=== PATIENT | female | born 1995 | race Caucasian/White ===

== ENCOUNTER 2023-06-12 11:41 | Outpatient (CLI) | payer BC, SELFPAY ==
[2023-06-20 08:02] LABS: Progesterone 3.2 ng/mL (***); Prolactin 6.5 ng/mL (***)
== END 2023-06-12 11:42 | disposition home or self-care (01) ==
LOC: ANHLAB 11:43
PROVIDERS: PCP Family Medicine; Visit Provider Obstetrics & Gynecology
DX: N92.6 Irregular menstruation, unspecified (principal)
CPT/HCPCS: 36415; 84144; 84146; 84443

== ENCOUNTER 2025-02-28 10:22 | Emergency (ER) | payer OTHER, BC, SELFPAY ==
[2025-02-28 10:31] VITALS: BP 113/69; PULSE 81; RESP 20; TEMP 36.4; O2SAT 99
--- NOTE | 2025-02-28 10:54 | ED.GIBLEED ---
HPI - GI Bleed General Chief complaint: GI Bleed Stated complaint: Blood in Stool Source: patient Mode of arrival: ambulatory Limitations: no limitations History of Present Illness HPI Narrative: Patient is a 29-year-old female presents to the clinic complaints of blood in her stool and lower abdomen pain since this morning. She states that she is currently undergoing IVF treatment. Patient is not concerned for . She took a test a week ago, and has not ovulated since her last period. She states that she does not have any history of hemorrhoids. Denies any lightheadedness, nausea, vomiting, weakness, sweating or fevers. Related Data Home Medications ?Medication ?Instructions ?Recorded ?Confirmed ?Last Taken ?Type alprazolam 1 mg tablet 1 mg PO DAILY 04/09/22 11/04/24 Unknown History famotidine 10 mg tablet 10 mg PO DAILY 06/12/23 11/04/24 Unknown History omeprazole 40 mg capsule,delayed 40 mg PO DAILY 06/12/23 11/04/24 Unknown History release estradiol 2 mg tablet mg 02/28/25 Unknown History Allergies Allergy/AdvReac Type Severity Reaction Status Date / Time amoxicillin Allergy Intermediate Rash Verified 02/28/25 10:39 clavulanic acid Allergy Mild Nausea and Verified 02/28/25 10:39 Vomiting Penicillins Allergy Mild Nausea and Verified 02/28/25 10:39 Vomiting POTASSIUM CLAVULANATE Allergy Intermediate Rash Uncoded 02/28/25 10:39 Review of Systems Review of Systems: CONSTITUTIONAL: Denies body aches, fever, chills, or sweats. EYES: Denies visual changes, redness, or discharge. ENT: Denies rhinorrhea, congestion, sore throat, or otalgia. CARDIOVASCULAR: Denies chest pain, palpitations, or edema. RESPIRATORY: Denies cough or dyspnea. GASTROINTESTINAL: Reports LLQ and RLQ abdominal pain. Denies nausea, vomiting, or diarrhea, CVA Tenderness. Reports blood in stool. GENITOURINARY: Denies dysuria or hematuria. SKIN: Denies rash, itching, or wounds. MUSCULOSKELETAL: Denies back pain, joint pain, or myalgia. NEUROLOGIC: Denies headache, numbness, tingling, or weakness. PSYCH: Denies depression or anxiety. All systems reviewed & are unremarkable except as noted in HPI and below PMFSH Past Medical History Medical History Heartburn History of endometrial biopsy (03/21/11) postcoital bleeding--benign Bipolar affect, depressed ADHD Migraines Frequent headaches Heart murmur Depression Anxiety Insomnia Surgical History Surgical History History of tonsillectomy [place] teeth extracted (~11/13/12) Family History Family History Grandparent Bipolar disorder maternal grandmother Social History Social History Smoking status: Light tobacco smoker Smoking end date: 05/15/18 Alcohol intake: never Substance use: current Substance use type: marijuana Other substance usage details: daily Lack of Transportation: No Lack of Food: Never True Current Housing: I Have Housing Concerned About Future Housing: No Difficulty Paying Gas/Electric Bills: No Difficulty Paying for Meds: No Currently Unemployed: No Education: High School Diploma/GED Difficulty w/ Childcare or Family Care: No Living arrangements: other Additional living arrangements comments: Occupation/Education: occupation 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 Please see nursing chart for further information. There is no relevant family history pertinent to the presenting complaint. Exam Narrative: GENERAL: Well-appearing, well-nourished, and in no acute distress. HEAD: Normocephalic, atraumatic. EYES: PERRLA, conjunctivae clear, and EOMI. ENT: Mucous membranes moist. NECK: Supple. No lymphadenopathy CHEST: Speaks in full sentences. No respiratory distress. HEART: Regular rate and rhythm. ABDOMEN: Soft, flat, nondistended. No guarding, rebound tenderness, or rigid. No pulsatile masses. Bowel sounds x4. No periumbilical tenderness. No Supra pubic tenderness or distension. Good femoral pulses bilaterally. No hernia noted. No scars or surface trauma. Tenderness with palpation to LLQ abd RLQ. Pt declined JENNY. External exam with no evidence of hemorrhoid. SKIN: Warm, dry, no rash. NEURO: Alert and oriented x3. PSYCH: Normal mood and affect Course Course Level of Care: Express Care Visit Vital Signs Vital signs: Vital Signs Temperature 97.5 F L 02/28/25 10:31 Pulse Rate 81 02/28/25 10:31 Respiratory Rate 20 02/28/25 10:31 Blood Pressure 113/69 02/28/25 10:31 Pulse Oximetry 99 02/28/25 10:31 Oxygen Delivery Room Air 02/28/25 10:31 Temperature 97.5 F L 02/28/25 10:31 Pulse Rate 81 02/28/25 10:31 Respiratory Rate 20 02/28/25 10:31 Blood Pressure 113/69 02/28/25 10:31 Pulse Oximetry 99 02/28/25 10:31 Oxygen Delivery Room Air 02/28/25 10:31 reviewed. MDM - GI Bleed MDM Narrative Medical decision making narrative: Discussed physical exam findings. Discussed in length the importance of patient transferring to the ER for further evaluation. Pt agreeable to plan. Differential Diagnosis Differential diagnosis: Likely hemorrhoids, Upper gastrointestinal hemorrhage and Lower gastrointestinal hemorrhage Critical Care Time Critical Care Time Critical Care Time: No Discharge Plan Discharge Clinical Impression: Blood in stool Patient Disposition: Acute Care Hospital Condition: Stable Patient Language: [place] Prescriptions: No Action estradiol 2 mg tablet alprazolam 1 mg tablet 1 mg PO DAILY omeprazole 40 mg capsule,delayed release(DR/EC) 40 mg PO DAILY famotidine 10 mg tablet 10 mg PO DAILY Follow-up/Referrals: UNKNOWN,DOCTOR [Primary Care Provider] -
--- OUTSIDE RECORDS SUMMARY | 2025-02-28 11:35 | XMS_ITS | Clinical Summary ---
Author Organization [facility] Address [address] [place] [address] Phone Care Team Providers Care Triple Air Valve Tester Name Role Phone Hiro Johnson Primary Care Provider [phone] Angel Foster MD Unavailable [phone] Allergies Active Allergy Reactions Criticality Noted Date Comments Amoxicillin-Pot Clavulanate Vomiting 06/15/20 24 Medications ALPRAZolam (XANAX) 1 MG Tablet TAKE 1 TABLET BY MOUTH TWICE DAILY NEEDED 06/14/2024 Active omeprazole (PriLOSEC) 40 MG CAPSULE DELAYED RELEASE Take 40 mg by mouth daily. 03/19/2024 Active famotidine (PEPCID) 20 MG Tablet Take 20 mg by mouth 2 times daily. Active Family History Medical History Relation Name Comments No Known Problems Father No Known Problems Mother No Known Problems Sister Relation Name Status Comments Father Alive Mother Alive Sister Alive Social History Tobacco Use Types Packs/Day Years Used Date Smoking Tobacco: Former Cigarettes 0.5 5.5 0 09/14/2019 - 09/14/2009 Smokeless Tobacco: Never Tobacco Cessation:Counseling Given: Not Answered Alcohol Use Standard Drinks/Week Comments Yes 0 (1 standard drink = 0.6 oz pur e alcohol) occasional Comments Unknown Sex and Gender Information Value Date Recorded Sex Assigned at Not on file Legal Sex Female 11:32 AM CDT Gender Identity Not on file Sexual Orientation Not on file Last Filed Vital Signs Vital Sign Reading Time Taken Comments Blood Pressure 110/60 11/01/2024 10:06 AM [employer] ON CALL Pulse 92 11/01/2024 10:06 AM [employer] ON CALL Temperature 36.5 C (97.7 F) 11/01/2024 10:06 AM [employer] ON CALL Respiratory Rate 17 11/01/2024 10:06 AM [employer] ON CALL Oxygen Saturation 98% 11/01/2024 10:06 AM [employer] ON CALL Inhaled Oxygen Concentration - - Weight 74.4 kg (164 lb) 11/01/2024 10:06 AM [employer] ON CALL Height 175.3 cm (5' 9) 11/01/2024 10:06 AM [employer] ON CALL Body Mass Index 24.22 11/01/2024 10:06 AM [employer] SERV[employer] ON CALL Plan of Treatment Upcoming Encounters Date Type Department Care Team (Late st Contact Info) Description 05/08/2025 10:00 AM CDT Office Visit [facility] - Neurology - [address] [place] [address] Stella Kinsey APRN, [facility] [address] [place] [address] Health Maintenance Due Date Last Done Comments Hepatitis C Virus (HCV) Screening 1995 TdaP Immunization 1995 Hepatitis B Immunization (1 of 3 - 19+ 3-dose series) 2014 Pap Smear 2016 Influenza Immunization (#1) 2024 SARS-COV-2 Immunization ( - season) 2024 Respiratory Syncytial Virus (RSV) Immunization (Adult) (1 - 1-dose 75+ series) 2070 Meningococcal Immunization (ACWY) Aged Out No longer eligible based on patient's age to complete this topic Pneumococcal Immunization Combined Aged Out No longer eligible based on patient's age to complete this topic Rotavirus Immunization Aged Out No lo nger eligible based on patient's age to complete this topic Insurance [facility] Care Teams Triple Air Valve Tester Relationship Specialty Start Date End Date Hiro Johnson PA [address] [place] [id number] PCP - General Physician Veteran Appeals Reviewer 06/14/24 Angel Foster MD [address] [place] [address] Consulting Physician Neurology 11/01/24
--- OUTSIDE RECORDS SUMMARY | 2025-02-28 11:35 | XMS_ITS | Data Portability ---
Author Organization [facility] [employer], Main Office Address [address] [place] [address] Assessment No assessment recorded. Plan of Treatment Reminders Order Date Submit Date Provider Last Modified By Organization Details Last Modified Time Details Appointments Any 30 2024 01:30P ROSANNE Mae Not available Not available Not available Lab drug screen, urine [address] ([facility]), [address] [place], [address], 11/25/2024 12:56:56 rapid strep group A, throat 2023 024 [email or web address] 00 [facility], [address] [place] [address], [phone], 09/02/2024 12:51:37 Referral None recorded. Procedures None recorded. Surgeries None recorded. Imaging None recorded. Medication Orders azithromy cordelia 250 mg tablet 2023 024 [id number], [address], [place], [place], [phone], 09/02/2024 12:30:08 promethaz ine-DM 6.25 mg-15 mg/5 mL oral syrup 2023 024 [id number], [address], [place], [place], [phone], 09/02/2024 12:30:07 Patient TargetsNo targets recorded. Patient InstructionsNo instructions recorded. Reason for Referral None Reported. Results Created Date Observation Date Name Description Value Unit Range Abnormal Flag Note LastModifiedBy Organization Detail LastModifiedTime 09/02/20 24 09/02/2024 rapid strep group A, throa t STREP A negati ve Not Available [facility]_[address], [address], 09/02/2024 12:35:07 Result Notes None recorded. Problems Name Problem SNOMED Code Status Onset Date Resolution Date Notes Provider Name and Address Organization Details Recorded Time Tobacco user 955289343 Completed Not Available [facility] 3 00:53:13 Panic attack 943328032 Active 2019 Not Available [facility] 3 00:53:13 Vaginal discharge 703425783 Completed Not Available [facility] 3 00:53:14 Menometror rhagia 817425278 Completed Not Available [facility] 3 00:53:14 Depressive disorder 99207492 Active 2019 Not Available [facility] 3 00:53:14 Anxiety 62812102 Active 2019 Not Available [facility] 3 00:53:14 Irregular periods 60897052 Completed Not Available [facility] 3 00:53:14 Seizure 46592342 Active 2019 Not Available [facility] 3 00:53:14 Acid reflux 289896406 Active 2022 Deepika Stuart MD [address], [place], [address] , [employer] [facility] [employer] 3 14:18:25 Skin lesion 19624952 Active 2022 Deepika Stuart MD [address], [place], [address] , [employer] [facility] [employer] 3 12:30:22 Upper respirator y infection 21351596 Active 2022 PINEDA Leslie [address], [place], [address] , [employer] 3 13:10:17 Adult health examinatio n Active 2023 PINEDA Leslie [address] [facility], [facility] [address], [place], [address] , [employer] 4 09:24:39 Pharyngiti s 578078376 Active 2023 PINEDA Leslie [address] [facility], [facility] [address], [place], [address] , [employer] 4 12:26:43 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 Procedure Notes None recorded. Medical Equipment None Reported. Allergies Allergen ID Allergen Name Allergen Category Reaction Reaction Severity Criticality Documentation Date Start Date Code Code System Note Provider Name and Address Organization Details Recorded Time 1288 Augmentin medicatio n vomiting Not available Not available 11/12/2022 67785 2 RxNorm Not Available [facility] 3 01:02:05 Medications Name Sig Start Date Stop Date Status Note LastModified by Organization Details LastModified Time fed-ex priority overnight MON TUES PRIORITY OV HM NO SIG RR DECLINED COUNSELI NG active Not Available Not Available No t Available progester one (micro) 200mg supp UNWRAP AND INSERT 1 SUPPOSIT ORY VAGINALL Y TWICE DAILY active Not Available Not Available No t Available h.c.g trigger 6500units /ml INJECT 6,500 I SUBCUTAN EOUSLY ONCE DAILY WHEN DIRECTED active Not Available Not Available No t Available sharp container USE TO DISPOSE OF NEEDLES active Not Available Not Available No t Available promethaz ine-DM 6.25 mg-15 mg/5 mL oral syrup Take 5 mL every 4 hours by oral route as needed for 10 days. active Not Available Not Available No t Available nystatin 100,000 unit/mL oral suspensio n active Not Available Not Available Not Available venlafaxi ne ER 75 mg capsule,e xtended release 24 hr TK ONE C PO ONCE A DAY UTD 01/21 completed Not Available Not Available Not Available azithromy cordelia 250 mg tablet TK 2 TS PO ON DAY 1, THEN TK 1 T PO D FOR 4 DAYS. active Not Available Not Available No t Available ibuprofen 800 mg tablet Take 1 tablet 3 times a day by oral route with meals for 10 days. 12/03 completed Not Available Not Available Not Available alprazola m 1 mg tablet TAKE 1 TABLET BY MOUTH TWICE DAILY NEEDED 2024 active Not Available Not Available Not Avai lable Lidocaine Viscous 2 % mucosal solution active Not Available Not Available Not Available fluconazo le 150 mg tablet active Not Available Not Available Not Available minocycli ne 100 mg capsule TAKE 1 CAPSULE BY MOUTH TWICE DAILY 01/01 completed Not Available Not Available Not Available metronida zole 0.75 % (37.5 mg/5 gram) vaginal gel INSERT ONE APPLICAT ORFUL INTRAVAG INALLY QD X 5 DAYS active Not Available Not Available No t Available prednison e 20 mg tablet TAKE 2 TABLETS BY MOUTH TWICE DAILY X2DAYS, 1 TWICE DAILY X5 DAYS, 1/2 TABLET TWICE DAILY X2 DAYS, 1/2 TABLET ONCE DAILY X1 DAYS 07/15 completed Not Available Not Available Not Available clonazepa m 1 mg tablet TK 1 T PO QAM AND 2 TS QPM active Not Available Not Available No t Available venlafaxi ne ER 150 mg capsule,e xtended release 24 hr TK ONE C PO ONCE A DAY UTD 05/22 completed Not Available Not Available Not Available metronida zole 500 mg tablet TK 1 T PO Q 12 H active Not Available Not Available No t Available tretinoin 0.05 % topical cream APPLY PEA SIZED AMOUNT TOPICALL Y TO FACE AT NIGHT 01/01 completed Not Available Not Available Not Available ciproflox acin 500 mg tablet TAKE 1 TABLET BY MOUTH EVERY 12 HOURS FOR 10 DAYS 07/15 completed Not Available Not Available Not Available omeprazol e 40 mg capsule,d elayed release TAKE 1 CAPSULE BY MOUTH EVERY DAY active Not Available Not Available No t Available tramadol 50 mg tablet TK 1 T PO Q 8 H PRN P 01/21 completed Not Available Not Available Not Available triamcino lone acetonide 0.1 % topical cream APPLY THIN LAYER TOPICALL Y TO THE AFFECTED AREA TWICE DAILY 01/01 completed Not Available Not Available Not Available zonisamid e 100 mg capsule TK 2 CS PO HS 01/21 completed Not Available Not Available Not Available progester one 50 mg/mL intramusc ular oil active Not Available Not Available Not Available alprazola m 0.25 mg tablet TK 1 T PO ONCE A DAY PRN FOR PANIC ATTACKS 01/21 completed Not Available Not Available Not Available famotidin e 20 mg tablet Take 1 tablet every day by oral route. active Not Available Not Available No t Available estradiol 1 mg tablet active Not Available Not Available Not Available levetirac etam 250 mg tablet TK 1 T PO BID active Not Available Not Available No t Available dextroamp hetamine- amphetami ne ER 20 mg 24hr capsule,e xtend release TK 1 C PO BID UTD 05/22 completed Not Available Not Available Not Available trazodone 100 mg tablet TK 1 T PO HS 01/21 completed Not Available Not Available Not Available chorionic gonadotro pin, human 10,000 unit IM powder for solution active Not Available Not Available Not Available cephalexi n 500 mg capsule active Not Available Not Available Not Available naproxen sodium 550 mg tablet TK 1 T PO Q 12 H PRN 01/21 completed Not Available Not Available Not Available trazodone 150 mg tablet active Not Available Not Available Not Available Differin 0.1 % topical gel APPLY A THIN LAYER TO THE AFFECTED AREA(S) BY TOPICAL ROUTE ONCE DAILY BEFORE BEDTIME 05/22 completed Not Available Not Available Not Available omeprazol e 20 mg capsule,d elayed release Take 1 capsule every day by oral route. 01/07 completed Not Available Not Available Not Available estradiol 2 mg tablet TAKE 1 TABLET BY MOUTH THREE TIMES DAILY active Not Available Not Available No t Available hydroxyzi ne HCl 25 mg tablet TK 1 T PO Q 6 H PRN 01/21 completed Not Available Not Available Not Available zolpidem 5 mg tablet active Not Available Not Available Not Available alprazola m 2 mg tablet TK 1 T PO BID 01/21 completed Not Available Not Available Not Available lorazepam 1 mg tablet TK 1 T PO Q 6 TO 8 H PRN . MAX 3 PER DAY active Not Available Not Available No t Available letrozole 2.5 mg tablet TAKE 2 TABLETS BY MOUTH ON DAYS 3 THRU 7 OF CYCLE active Not Available Not Available No t Available methylpre dnisolone 4 mg tablets in a dose pack FOLLOW PACKAGE DIRECTIO NS active Not Available Not Available No t Available dextroamp hetamine- amphetami ne ER 30 mg 24hr capsule,e xtend release TK ONE C PO QAM UTD 01/21 completed Not Available Not Available Not Available sertralin e 50 mg tablet TK 1 T PO QD 01/21 completed Not Available Not Available Not Available doxycycli ne hyclate 100 mg tablet TAKE 1 TABLET BY MOUTH TWICE DAILY FOR ACNE 02/21 completed pt has started accutane Not Available Not Available Not Available leuprolid e 1 mg/0.2 mL subcutane ous kit active Not Available Not Available Not Available Sure Comfort Insulin Syringe 1 mL 29 gauge x 1/2 USE DIRECTED [H.C.G. MEDICATI ON] active Not Available Not Available No t Available Amphetami ne Salt Combo 20 mg tablet active Not Available Not Available No t Available dextroamp hetamine- amphetami ne ER 25 mg 24hr capsule,e xtend release TK ONE C PO QAM 01/21 completed Not Available Not Available Not Available azithromy cordelia 500 mg tablet Take 1 tablet twice a day by oral route for 1 day. 05/22 completed Not Available Not Available Not Available escitalop jenny 10 mg tablet TK 1 T PO D 01/21 completed Not Available Not Available Not Available escitalop jenny 20 mg tablet TK 1 T PO D UTD 05/22 completed Not Available Not Available Not Available Sprintec (28) 0.25 mg-0.035 mg tablet TAKE 1 ACTIVE TABLET BY MOUTH ONCE DAILY active Not Available Not Available No t Available Amnesteem 40 mg capsule TAKE 3 CAPSULES BY MOUTH EVERY DAY 01/01 completed Not Available Not Available Not Available aripipraz ole 10 mg tablet TK 1 T PO ONCE D 01/21 completed Not Available Not Available Not Available aripipraz ole 15 mg tablet TK 1 T PO HS UTD 05/22 completed Not Available Not Available Not Available aripipraz ole 20 mg tablet TK 1 T PO ONCE A DAY FOR 30 DAYS 05/22 completed Not Available Not Available Not Available cyclobenz aprine 5 mg tablet Take 1 tablet 3 times a day by oral route. active Not Available Not Available No t Available ganirelix 250 mcg/0.5 mL subcutane ous syringe active Not Available Not Available Not Available Premarin 0.625 mg tablet Take 1 tablet twice a day by oral route for 14 days. active Not Available Not Available No t Available Abilify 5 mg tablet TK 1 T PO QPM active Not Available Not Available No t Available nitrofura ntoin monohydra te/macroc rystals 100 mg capsule TK 1 C PO Q 12 H WF active Not Available Not Available No t Available eszopiclo ne 3 mg tablet active Not Available Not Available Not Available Menopur 75 unit subcutane ous solution active Not Available Not Available Not Available Follistim AQ 900 unit/1.08 mL subcutane ous cartridge active Not Available Not Available No t Available quetiapin e 50 mg tablet active Not Available Not Available Not Available Fluvirin 45 mcg (15 mcg x 3)/0.5 mL intramusc ular suspensio n ADM 0.5ML UTD active Not Available Not Available No t Available Fluvirin 45 mcg (15 mcg x 3)/0.5 mL intramusc ular suspensio n active Not Available Not Available Not Available Mydayis 12.5 mg capsule extended release 24 hr TK ONE C PO QAM UTD 01/21 completed Not Available Not Available Not Available ID NOW COVID-19 Test Kit TEST DIRECTED TODAY 08/21 completed Not Available Not Available Not Available BinaxNOW COVID-19 Ag Self Test kit TEST DIRECTED TODAY active Not Available Not Available No t Available Vitals Date Recorded Body height Body mass index (BMI) Body weight Body temperature Oxygen saturation Oxygen saturation in Arterial blood by Pulse oximetry Heart rate Systolic blood pressure Diastolic blood pressure Provider Name and Address Organization Details Last Updated DateTime 5 175.26 cm 23.9 kg/m2 43841.6 6 g 97.5 [degF] 96 % 96 % 84 /min 120 mm[Hg] 64 mm[Hg] Julianna Delgado RN [place] [facility] [employer] 5 11:20:54 Date Recorded Body height Body mass index (BMI) Body weight Body temperature Heart rate Respiratory rate Oxygen saturation Oxygen saturation in Arterial blood by Pulse oximetry Systolic blood pressure Diastolic blood pressure Provider Name and Address Organization Details Last Updated DateTime 4 175.26 cm 23.2 kg/m2 03929 g 97.9 [degF] 78 /min 16 /min 98 % 98 % 106 mm[Hg] 64 mm[Hg] Jamila Soto RN [facility] 4 12:14:02 Date Recorded Body height Body mass index (BMI) Body weight Body temperature Heart rate Oxygen saturation Oxygen saturation in Arterial blood by Pulse oximetry Systolic blood pressure Diastolic blood pressure Provider Name and Address Organization Details Last Updated DateTime 4 175.26 cm 22 kg/m2 21766.9 6 g 98.6 [degF] 61 /min 98 % 98 % 125 mm[Hg] 73 mm[Hg] Samantha Ramos MA [facility] 4 12:05:12 Date Recorded Body height Body mass index (BMI) Body weight Body temperature Heart rate Oxygen saturation Oxygen saturation in Arterial blood by Pulse oximetry Systolic blood pressure Diastolic blood pressure Provider Name and Address Organization Details Last Updated DateTime 4 175.26 cm 23.3 kg/m2 82361.5 9 g 98.2 [degF] 68 /min 97 % 97 % 110 mm[Hg] 72 mm[Hg] Kristie Skinner RN [facility] 4 11:31:02 Date Recorded Body height Body mass index (BMI) Body weight Body temperature Heart rate Oxygen saturation Oxygen saturation in Arterial blood by Pulse oximetry Systolic blood pressure Diastolic blood pressure Provider Name and Address Organization Details Last Updated DateTime 4 175.26 cm 23 kg/m2 57895.4 1 g 98.2 [degF] 62 /min 99 % 99 % 104 mm[Hg] 60 mm[Hg] Kristie Skinner RN [facility] 4 12:17:13 Social History Question Answer Notes LastModified by Organizat ion Details LastModified Time Tobacco Smoking Status Former Smoker quit 2019 Not Available [facility] 11/12/2022 00:46:15 What Is Your Level Of Caffeine Consumption? Heavy [id number] Information not available 11/12/2022 What Type Of Diet Are You Following? REGULAR Watches Carb [email or web address] Information not available 12/04/2023 Which Illicit Or Recreational Drugs Have You Used? No Marijuana [id number] Information not available 11/12/2022 What Is The Highest Grade Or Level Of School You Have Completed Or The Highest Degree You Have Received? [id number] [email or web address] Information not available 12/04/2023 Have There Been Any Changes To Your Family Or Social Situation? No [email or web address] Information not available 12/04/2023 How Many Years Have You Used Illicit Or Recreational Drugs? 16 [email or web address] Information not available 12/04/2023 Do You Use Insect Repellent Routinely? Yes [email or web address] Information not available 12/04/2023 What Is Your Relationship Status? Information not available 12/04/2023 Do You Have Smoke And Carbon Monoxide Detectors In Your Home? Yes [email or web address] Information not available 12/04/2023 Are You Passively Exposed To Smoke? No [email or web address] Information not available 12/04/2023 Are There Any Smokers In Your House? No [email or web address] Information not available 12/04/2023 How Much Tobacco Do You Smoke? 0.5 PPD [id number] Information not available 11/12/2022 Do You Use Sunscreen Routinely? Yes [email or web address] Information not available 12/04/2023 How Many Years Have You Smoked Tobacco? 10 [id number] Information not available 11/12/2022 Have You Used IV Drugs? Yes At Age 16 -- [email or web address] Information not available 12/04/2023 Sex: Unknown Functional Status Question Answer Note LastModified by Organizat ion Details LastModified Time Do you use any illicit or recreational drugs? Yes [email or web address] Information not available 12/04/2023 What is your level of alcohol consumption? Occasional Information not available 12/04/2023 Are you currently employed? 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 Moderate [id number] Information not available 11/12/2022 Mental Status None recorded. Family History Relationship Description Onset Age of this Age Resolved Age Notes LastModified by Organization Details LastModified Time Maternal Grandmother Malignant neoplastic disease [email or web address] Not available 12/03 12:07:41 Maternal Grandmother Bipolar disorder [email or web address] Not available 12/03 12:07:41 Maternal Grandmother Depressive disorder [id number] Not available 11/12/2022 00:47:58 Maternal Grandmother Anxiety disorder [id number] Not available 11/12/2022 00:47:58 Paternal Grandmother Malignant neoplastic disease [email or web address] Not available 12/03 12:07:41 Medical History Condition Response SEIZURES/EPILEPSY Y HEADACHES/MIGRAINES Y ANXIETY DISORDER Y HEART ARRHYTHMIA SLEEP DISORDER Y DEPRESSION (INCLUDING POST ) Y HEARTBURN / REFLUX Y Gynecological History Statement/Question Response Abnormal Pap N Date of Last Pap Smear 01/07/2021 Current Control Method BCPs Age at Menarche 13 Date of LMP 12/10/2020 Breast Problems no Obstetrics History GPAL:G 0 P 0 0 0 0 Past Encounters Encounter ID Performer Location Encounter Start Date Encounter Closed Date Diagnosis/Indication Diagnosis SNOMED-CT Code Diagnosis ICD10 Code Diagnosis Note [id number] Deepika Stuart MD [facility] [address] [facility] [place] [address] 11/20/2020 00:00:00 11/21/2020 06:35:53 [id number] [employer] [facility] _ATHENA_M IGRATION_ DEFAULT_1 _1 , 01/07/2021 00:00:00 01/07/2021 11:23:48 [id number] Deepika Stuart MD [facility] [address] [facility] [place] [address] 01/23/2021 00:00:00 01/23/2021 22:10:28 [id number] Deepika Stuart MD [facility] [address] [place] [address] 02/20/2021 00:00:00 02/20/2021 14:23:43 [id number] Deepika Stuart MD [facility] [place] [address] [place] [address] 05/22/2021 00:00:00 05/22/2021 22:15:52 [id number] Deepika Stuart MD [facility] [place] [address] [place] [address] 06/13/2021 00:00:00 06/13/2021 20:55:52 [id number] Deepika Stuart MD [facility] [place] [address] [place] [address] 06/21/2021 00:00:00 06/21/2021 12:07:51 [id number] Deepika Stuart MD [facility] [place] [address] [place] [address] 08/21/2021 00:00:00 08/21/2021 20:43:48 [id number] Deepika Stuart MD [facility] [place] [address] [place] [address] 11/20/2021 00:00:00 11/20/2021 12:49:00 [id number] Deepika Stuart MD [facility] [place] [address] [place] [address] 02/21/2022 00:00:00 02/21/2022 12:27:59 [id number] Deepika Stuart MD [facility] [place] [address] [place] [address] 05/30/2022 00:00:00 05/30/2022 18:08:18 [id number] Deepika Stuart MD [facility] [place] [address] [place] [address] 07/31/2022 00:00:00 07/31/2022 17:22:34 [id number] Deepika Stuart MD [facility] [place] [address] [place] [address] 10/03/2022 00:00:00 10/03/2022 18:18:39 [id number] Deepika Stuart MD [facility] [place] [address] [place] [address] 01/01/2023 14:00:00 01/01/2023 14:17:52 Anxiety 44969350 F41.9 Continue alprazolam as needed. Acid reflux 912137013 K2 1.9 Causing ear itching use pepcid along with omeprazole [id number] Deepika Stuart MD [facility] [place] [place] [address] 05/08/2023 12:14:02 05/08/2023 12:36:19 Anxiety 67078541 F41.9 Continue alprazolam as needed. Acid reflux 720706362 K2 1.9 Causing ear itching use pepcid along with omeprazole Skin lesion 46977014 L98 .9 Reassuranc e given [id number] Deepika Stuart MD [facility] [place] [address] [place] [address] 09/04/2023 10:30:25 09/04/2023 10:49:25 Acid reflux 711948891 K21.9 Anxiety 46037793 F41.9 Depressive disorder 3548 9007 F32.A Panic attack 938665985 F 41.0 Seizure 46321964 R56.9 [id number] Deepika Stuart MD [facility] [place] [facility] [place] [address] 12/04/2023 12:07:01 12/04/2023 12:25:26 Acid reflux 888410829 K21.9 Anxiety 70727333 F41.9 Depressive disorder 3548 9007 F32.A Panic attack 111886848 F 41.0 Seizure 37393712 R56.9 [id number] Oskar Balderrama MD [facility] [address] [facility] [address] [place] [address] 04/08/2024 11:27:49 04/08/2024 12:24:55 Acid reflux 771606371 K21.9 Depressive disorder 3548 9007 F32.A Panic attack 111941901 F 41.0 Seizure 91243053 R56.9 Adult heal th examination 194191150 Z00.00 Anxiety 04302261 F41.9 [id number] Oskar Balderrama MD [address] [place] [address] 07/15/2024 11:21:44 07/15/2024 11:49:49 Anxiety 54340306 F41.9 Depressive disorder 3548 9007 F32.A Acid reflux 058907931 K2 1.9 [id number] Oskar Balderrama MD [address] [address] 09/02/2024 12:06:25 09/02/2024 12:41:09 Pharyngitis 639374622 J02.9 Seizure 59065096 R56.9 [id number] Oskar Balderrama MD [address] [address] 11/25/2024 11:12:21 11/25/2024 12:35:15 Seizure 46851897 R56.9 Long-term current use of benzodiazepine 4047142159 7260860 Z79.899 Acid reflux 515728933 K2 1.9 Anxiety 20459430 F41.9 Panic attack 222603135 F 41.0 Depressive disorder 3548 9007 F32.A Health Concerns Section Related Observation LastModified by Organization Detai ls LastModified Time None Recorded Concern Status LastModified by Organization Details LastModified Time None Recorded Advance Directives Directive None Recorded Payers Insurance Date Sequence Insurance Name Policy Number Policy Suárez Covered Member ID Suárez Member ID Guarantor Name 02/21/2025 1 [facility] [id number] Kristie Wilson [id number] Kristie Wilson 12/04/2023 1 [facility] [id number] Kristie Wilson [id number] Kristie Wilson 04/08/2024 1 [facility] [id number] Kristie Wilson [id number] Kristie Wilson 12/04/2023 1 [facility] - DOS ON OR AFTER 21 (MEDICAID REPLACEMENT - HMO) Kristie Dario [id number] Kristie Wilson 02/21/2025 2 [place] (PPO) [id number] Kristie Wilson [id number] Kristie Wilson Notes Date Note Type Note Provider Name and Address Organization Details Recorded Time 12/04/2023 text/html no changes PINEDA Leslie [address], [place], [address], [employer] 12/18/2023 12:33:37 04/08/2024 text/html 28 y/o , no changes , stable PINEDA Leslie [address], [place], [address], [employer] 04/20/2024 09:25:32 07/15/2024 text/html no changes PINEDA Leslie [address], [place], [address], [employer] 08/11/2024 23:01:08 09/02/2024 text/html sinus pressure, no fever PINEDA Leslie [address], [place], [address], [employer] 09/18/2024 10:30:33 11/25/2024 text/html she saw neurologist , he too was suggesting clonazepam rather than alprazolam ., she has gotten down from 6 mg per day at least . PINEDA Leslie [address], [place], [address], [employer] 12/03/2024 12:48:45 OBGyn Episode No OBEpisode recorded.
== END 2025-02-28 11:11 | disposition short-term general hospital (02) ==
DX: K92.1 Melena (principal); Z87.891 Personal history of nicotine dependence; R01.1 Cardiac murmur, unspecified; F41.9 Anxiety disorder, unspecified
CPT/HCPCS: 99212; G0463

== ENCOUNTER 2025-06-04 13:34 | Emergency (ER) | payer OTHER, SELFPAY ==
--- NOTE | ~2025-06-04 | CT_ITS ---
EXAMINATION: CT brain wo con COMPARISON: None HISTORY: seizure, unsure hit head TECHNIQUE: Axial images were obtained through the brain without IV contrast. CT scan performed using dose optimization techniques including the following automated exposure control; adjustment of mA and/or kV; use of iterative reconstruction technique. Automatic exposure control was used to reduce radiation dose. Permanent radiation dose record is archived to PACS. FINDINGS: No acute infarct or parenchymal hemorrhage. No abnormal mass or mass effect. No midline shift. No extra-axial fluid collections. No hydrocephalus. . Mastoid air cells unremarkable. Sinuses and orbits unremarkable. No acute fracture. No significant facial or scalp soft tissue swelling evident. No radiopaque foreign body is seen. Impression: 1.No acute intracranial abnormality. Reviewed, dictated and finalized at location A. Impression: 1.No acute intracranial abnormality.
--- NOTE | ~2025-06-04 | XR_ITS ---
EXAMINATION: XR chest 2V, 06/04/2025 14:50 CDT HISTORY: coughing up blood COMPARISON: No comparisons available. Technique: 2 views obtained. Findings: The lungs are clear, no effusion. No pneumothorax. Heart is normal size. Mediastinal and hilar contours are within normal limits. Bony thorax no acute abnormality. Impression: No acute cardiopulmonary abnormality. Reviewed, dictated and finalized at location A. Impression: No acute cardiopulmonary abnormality.
[2025-06-04 13:43] VITALS: BP 119/75; PULSE 72; RESP 20; TEMP 37.1; O2SAT 100
--- NOTE | 2025-06-04 13:52 | ECG_ITS ---
Test Date: 2025-06-04 13:55:02 Measurements Intervals [place] Rate: 64 P: 47 [place]: 153 QRS: 85 QRSD: 101 T: 93 QT: 419 QTc: 434 Interpretive Statements SINUS RHYTHM EARLY REPOLARIZATION No previous ECG available for comparison Electronically Signed On 06-05-2025 14:16:18 CDT by Jose M Tyler M.D.
[2025-06-04 14:07] LABS: Hematocrit 39.8 % (37.0-47.0); Hemoglobin 13.4 g/dL (12.0-15.0); Immature Granulocyte Percent A 0.6 % (0-0.5); Lymphocytes Absolute Auto 0.73 K/mm3 (0.9-3.2); Mean Corpuscular HGB Conc 33.7 g/dl (32-36); Mean Corpuscular Hemoglobin 30.2 pg (26-34); Mean Corpuscular Volume 89.6 fl (80-100); Nucleated Red Blood Cells Absolute Auto 0.000 K/mm3 (0.0-0.012); Nucleated Red Blood Cells Perc 0.0 % (0.0-0.2); Platelet Count Result 217 k/mm3 (150-375); Red Blood Count 4.44 M/mm3 (4.2-5.4); White Blood Count 17.1 K/mm3 (4.5-10.0)
--- OUTSIDE RECORDS SUMMARY | 2025-06-04 14:14 | XMS_ITS | Clinical Summary ---
Author Organization [facility] Address [address] [place] [address] Phone Care Team Providers Care Tree Care Foreman Name Role Phone Hiro Johnson PAC Primary Care Provider [phone] Angel Foster MD Unavailable [phone] Allergies Active Allergy Reactions Criticality Noted Date [...] Used Date Smoking Tobacco: Former Cigarettes 0.5 5.7 0 09/14/2019 - 09/14/2009 Smokeless Tobacco: Never [...] Comments Blood Pressure 110/60 11/01/2024 10:06 AM HEEL CEMENTER Pulse 92 11/01/2024 10:06 AM HEEL CEMENTER Temperature 36.5 C (97.7 F) 11/01/2024 10:06 AM HEEL CEMENTER Respiratory Rate 17 11/01/2024 10:06 AM HEEL CEMENTER Oxygen Saturation 98% 11/01/2024 10:06 AM HEEL CEMENTER Inhaled Oxygen Concentration - - Weight 74.4 kg (164 lb) 11/01/2024 10:06 AM HEEL CEMENTER Height 175.3 cm (5' 9) 11/01/2024 10:06 AM HEEL CEMENTER Body Mass Index 24.22 11/01/2024 10:06 AM HEEL CEMENTER Plan of Treatment Health Maintenance Due Date Last Done Comments Hepatitis C Virus (HCV) Screening 1995 TdaP Immunization 1995 Hepatitis B Immunization (1 of 3 - 19+ 3-dose series) 2014 Pap Smear 2016 Human Papillomavirus (HPV) Immunization (1 - 3-dose SCDM series) 2022 SARS-COV-2 Immunization ( - season) 2024 Influenza Immunization (#1) 2025 Respiratory Syncytial Virus (RSV) Immunization (Adult) (1 - 1-dose 75+ series) 2070 Meningococcal Immunization (ACWY) Aged Out No longer eligible based on patient's age to complete this topic Pneumococcal Immunization Combined Aged Out No longer eligible based on patient's age to complete this topic Rotavirus Immunization Aged Out No lo nger eligible based on patient's age to complete this topic Insurance Care Teams Tree Care Foreman Relationship Specialty Start Date End Date Hiro Johnson PAC [address] [id number] PCP - General Physician Repair Operator 06/14/24 Angel Foster MD [address] [place] [address] Consulting Physician Neurology 11/01/24
[2025-06-04 14:18] LABS: Alanine Aminotransferase 20 U/L (6-35); Albumin Level 4.2 g/dL (3.5-5.1); Alkaline Phosphatase 62 U/L (38-126); Anion Gap 9 mmol/L (4-12); Aspartate Amino Transferase 40 U/L (14-36); Bilirubin,Total 0.9 mg/dL (0.2-1.3); Blood Urea Nitrogen 14 mg/dL (7-17); Calcium 8.6 mg/dL (8.4-10.2); Carbon Dioxide 21 mmol/L (22-30); Chloride 105 mmol/L (98-107); Estimated CRCL calculation 89 ml/min; Estimated Glomerular Filt Rate > 60; Glucose 115 mg/dL (65-110); Potassium 4.1 mmol/L (3.4-5.0); Sodium 135 mmol/L (137-145); Total Protein 7.1 g/dL (6.3-8.2)
--- NOTE | 2025-06-04 14:26 | ED.SEIZURE ---
HPI - Seizure General Chief Complaint: Seizure Stated Complaint: seizures, coughing up blood Time Seen by Provider: 06/04/25 14:04 History of Present Illness HPI Narrative: Patient is a 29-year-old female who presents to the ER with concerns of recent seizure activity and coughing up blood. She reports she believes she had a seizure in her sleep last night because she woke with muscle aches as she has in the past when she has had a seizure. Patient reports she was speaking to her mom around noon today when she started making nonsensical statements. Her mom called patient's significant other and he reports patient was lying on the bathroom floor when he got home. Patient reports she was sitting on the toilet and then fell to the ground. She is unsure whether not she hit her head although she does not have any headache at this time. Patient reports she becomes ?hot after she has a seizure and her significant other reports the only way he can get her out of it is by ?throwing a Xanax in her mouth and placing patient in an ice bath. She endorses pain to the right side of her lungs at this time. Patient also endorses bright red blood every time she coughs. She endorses a history bipolar disorder, anxiety, depression, and addiction to Xanax. Patient denies any recent fevers, headache, urinary symptoms, or abdominal pain. Seizure History: Yes Related Data Home Medications ?Medication ?Instructions ?Recorded ?Confirmed ?Last Taken ?Type alprazolam 1 mg tablet 1 mg PO DAILY 04/09/22 11/04/24 Unknown History famotidine 10 mg tablet 10 mg PO DAILY 06/12/23 11/04/24 Unknown History omeprazole 40 mg capsule,delayed 40 mg PO DAILY 06/12/23 11/04/24 Unknown History release estradiol 2 mg tablet mg 02/28/25 Unknown History Allergies Allergy/AdvReac Type Severity Reaction Status Date / Time amoxicillin Allergy Intermediate Rash Verified 06/04/25 13:37 clavulanic acid Allergy Mild Nausea and Verified 06/04/25 13:37 Vomiting Penicillins Allergy Mild Nausea and Verified 06/04/25 13:37 Vomiting POTASSIUM CLAVULANATE Allergy Intermediate Rash Uncoded 02/28/25 10:39 Review of Systems Review of Systems: All systems reviewed & are unremarkable except as noted in HPI and below PMFSH Past Medical History Medical History Heartburn History of endometrial biopsy (03/21/11) postcoital bleeding--benign Bipolar affect, depressed ADHD Migraines Frequent headaches Heart murmur Depression Anxiety Insomnia Surgical History Surgical History History of tonsillectomy [place] teeth extracted (~11/13/12) Family History Family History Grandparent Bipolar disorder maternal grandmother Social History Social History Smoking status: Light tobacco smoker Smoking end date: 05/15/18 Alcohol intake: never Substance use: current Substance use type: marijuana Other substance usage details: daily Lack of Transportation: No Lack of Food: Never True Current Housing: I Have Housing Concerned About Future Housing: No Difficulty Paying Gas/Electric Bills: No Difficulty Paying for Meds: No Currently Unemployed: No Education: High School Diploma/GED Difficulty w/ Childcare or Family Care: No Living arrangements: other Additional living arrangements comments: Occupation/Education: occupation 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 HEAD: Normocephalic, atraumatic. No visible lacerations in mouth. NECK: Supple. No adenopathy, no masses. RESPIRATORY: Airway patent, respirations nonlabored. Clear to auscultation bilaterally, no rales, rhonchi, wheezing. + bright red mucus after coughing CARDIOVASCULAR: Regular rate and rhythm without murmurs, rubs, or gallops. Peripheral pulses 2+ and equal bilaterally. ABDOMINAL: Soft, nontender, nondistended, no hepatosplenomegaly. Normoactive BS. MUSCULOSKELETAL: Moves all extremities. Strength/ROM intact without gross deformities. SKIN: Warm, dry, normal color. No rashes. NEURO: A&O X3. Speech clear. Cranial nerves II-XII intact. No ataxic movements. PSYCHIATRIC: Appropriate mood and affect. Normal interaction. Course Vital Signs Vital signs: Vital Signs Temperature 37.1 C 06/04/25 13:43 Pulse Rate 72 06/04/25 13:43 Respiratory Rate 20 06/04/25 13:43 Blood Pressure 119/75 06/04/25 13:43 Pulse Oximetry 100 06/04/25 13:43 Oxygen Delivery Room Air 06/04/25 13:43 Temperature 37.1 C 06/04/25 13:43 Pulse Rate 68 06/04/25 16:36 Respiratory Rate 16 06/04/25 16:36 Blood Pressure 110/60 06/04/25 16:36 Pulse Oximetry 100 06/04/25 16:36 Oxygen Delivery Room Air 06/04/25 13:43 MDM - Seizure MDM Narrative Medical decision making narrative: Patient is a 29-year-old female who presents to the ER with concerns of recent seizure activity and coughing up blood. She reports she believes she had a seizure in her sleep last night because she woke with muscle aches as she has in the past when she has had a seizure. Patient reports she was speaking to her mom around noon today when she started making nonsensical statements. Her mom called patient's significant other and he reports patient was lying on the bathroom floor when he got home. Patient reports she was sitting on the toilet and then fell to the ground. She is unsure whether not she hit her head although she does not have any headache at this time. Patient reports she becomes ?hot after she has a seizure and her significant other reports the only way he can get her out of it is by ?throwing a Xanax in her mouth and placing patient in an ice bath. She endorses pain to the right side of her lungs at this time. Patient also endorses bright red blood every time she coughs. She endorses a history bipolar disorder, anxiety, depression, and addiction to Xanax. Patient denies any recent fevers, headache, urinary symptoms, or abdominal pain. She reports she has recently been given medications to help her become . Labs Ordered: CBC, CMP, UA, UDS, lactic acid, PTT, INR Imaging Ordered: Chest x-ray, brain CT Medications Ordered: None necessary Results: Patient's CBC indicates white blood cell count of 17.1. Her coags were negative. Patient's chemistry indicates a sodium of 135, carbon dioxide of 21, glucose of 115, AST of 40. Her urinalysis negative for any acute findings. Patient's CT scan indicates .No acute intracranial abnormality. Patient's chest x-ray indicates No acute cardiopulmonary abnormality. Diagnosis: subjective seizure, hemoptysis, upper respiratory infection. Patient Education/Shared MDM: Results of lab work and imaging shared with patient. It was explained to patient that she may have an upper respiratory infection, which is causing her elevated white blood cell count and blood in her sputum. Since patient has also been receiving treatment for IVF, some of these medications may cause elevated white blood cell counts. Her hemoptysis may be due to irritated blood vessels in the back of her throat d/t excessive coughing. This is not concerning due to pt's negative chest x-ray and her stable hgb/hct. She has not had any seizure-like activity since being in the ER and pt looks very well. Her lactic acid was normal so it was explained to pt that she did not have an extensive seizure or this number would be more elevated. Patient strongly advised to maintain hydration status upon discharge and follow-up with her PCP as soon as possible. She will not be discharged home with any new prescriptions. Strict return precautions provided (including coughing up blood clots, high fevers, shortness of breath, or seizures that do not stop for over five minutes). Patient verbalized understanding and is in agreement with plan. Vital signs stable at time of discharge. All questions answered. Differential Diagnosis Differential diagnosis: Likely intractable seizure disorder, generalized seizure and epileptic seizure Lab Data Attestation: I reviewed the patient's lab results. 06/04/25 14:02 06/04/25 14:02 Labs: Lab Results 06/04/25 06/04/25 06/04/25 Range/Units 14:02 14:58 15:00 WBC 17.1 H (4.5-10.0) K/mm3 RBC 4.44 (4.2-5.4) M/mm3 Hgb 13.4 (12.0-15.0) g/dL Hct 39.8 (37.0-47.0) % MCV 89.6 (80-100) fl MCH 30.2 (26-34) pg MCHC 33.7 (32-36) g/dl RDW 13.7 (11.5-14.5) % Plt Count 217 (150-375) k/mm3 MPV 10.3 (7.4-10.4) fl Immature Gran % (Auto) 0.6 H (0-0.5) % Neut % (Auto) 90.3 H (45.5-73.1) % Lymph % (Auto) 4.3 L (18.3-44.2) % Dolores % (Auto) 4.4 (2.6-8.5) % Eos % (Auto) 0.2 (0-4.4) % Baso % (Auto) 0.2 (0.2-1.2) % Lymph # (Auto) 0.73 L (0.9-3.2) K/mm3 Dolores # (Auto) 0.8 H (0.1-0.6) K/mm3 Eos # (Auto) 0.0 (0-0.3) K/mm3 Baso # (Auto) 0.0 (0.0-0.1) K/mm3 Abs Immat Gran (auto) 0.10 H (0.00-0.031) K/mm3 Absolute Neuts (auto) 15.5 H (1.3-6.7) K/mm3 Absolute Nucleated RBC 0.000 (0.0-0.012) K/mm3 Nucleated RBC % 0.0 (0.0-0.2) % PT 13.8 (11.1-14.7) Seconds INR 1.1 APTT 24.7 (22.3-36.8) Seconds Sodium 135 L (137-145) mmol/L Potassium 4.1 (3.4-5.0) mmol/L Chloride 105 (98-107) mmol/L Carbon Dioxide 21 L (22-30) mmol/L Anion Gap 9 (4-12) mmol/L BUN 14 (7-17) mg/dL Creatinine 0.85 (0.7-1.0) mg/dL Estim Creat Clear Calc 89 ml/min Estimated GFR > 60 (59 - ) Glucose 115 H (65-110) mg/dL Lactic Acid 1.2 (0.7-2.0) mmol/L Calcium 8.6 (8.4-10.2) mg/dL Total Bilirubin 0.9 (0.2-1.3) mg/dL AST 40 H (14-36) U/L ALT 20 (6-35) U/L Alkaline Phosphatase 62 (38-126) U/L Total Protein 7.1 (6.3-8.2) g/dL Albumin 4.2 (3.5-5.1) g/dL Urine Color Yellow (Yellow) Urine Appearance Clear (Clear) Urine pH 6.0 (5.0-9.0) Ur Specific Dinosaur 1.011 (1.001-1.035) Urine Protein Negative (Negative) mg/dL Urine Glucose (UA) Negative (Negative) mg/dL Urine Ketones Negative (Negative) mg/dL Ur Blood (Man) Negative (Negative) Urine Nitrate Negative (Negative) Urine Bilirubin Negative (Negative) Urine Urobilinogen 0.2 (<2.0) mg/dL Leukocyte Esterase Rfl Negative (Negative) REINA/UL POC Urine HCG, Qual Negative (Negative) Urine Opiates Screen Negative (Negative) Urine Methadone Screen Negative (Negative) Ur Barbiturates Screen Negative (Negative) Ur Phencyclidine Scrn Negative (Negative) Ur Amphetamine Screen Negative (Negative) U Benzodiazepines Scrn Positive A (Negative) Urine Cocaine Screen Negative (Negative) U Cannabinoids Screen Positive A (Negative) 06/04/25 Range/Units 15:07 WBC (4.5-10.0) K/mm3 RBC (4.2-5.4) M/mm3 Hgb (12.0-15.0) g/dL Hct (37.0-47.0) % MCV (80-100) fl MCH (26-34) pg MCHC (32-36) g/dl RDW (11.5-14.5) % Plt Count (150-375) k/mm3 MPV (7.4-10.4) fl Immature Gran % (Auto) (0-0.5) % Neut % (Auto) (45.5-73.1) % Lymph % (Auto) (18.3-44.2) % Dolores % (Auto) (2.6-8.5) % Eos % (Auto) (0-4.4) % Baso % (Auto) (0.2-1.2) % Lymph # (Auto) (0.9-3.2) K/mm3 [place] # (Auto) (0.1-0.6) K/mm3 Eos # (Auto) (0-0.3) K/mm3 Baso # (Auto) (0.0-0.1) K/mm3 Abs Immat Gran (auto) (0.00-0.031) K/mm3 Absolute Neuts (auto) (1.3-6.7) K/mm3 Absolute Nucleated RBC (0.0-0.012) K/mm3 Nucleated RBC % (0.0-0.2) % PT (11.1-14.7) Seconds INR APTT (22.3-36.8) Seconds Sodium (137-145) mmol/L Potassium (3.4-5.0) mmol/L Chloride (98-107) mmol/L Carbon Dioxide (22-30) mmol/L Anion Gap (4-12) mmol/L BUN (7-17) mg/dL Creatinine (0.7-1.0) mg/dL Estim Creat Clear Calc ml/min Estimated GFR (59 - ) Glucose (65-110) mg/dL Lactic Acid (0.7-2.0) mmol/L Calcium (8.4-10.2) mg/dL Total Bilirubin (0.2-1.3) mg/dL AST (14-36) U/L ALT (6-35) U/L Alkaline Phosphatase (38-126) U/L Total Protein (6.3-8.2) g/dL Albumin (3.5-5.1) g/dL Urine Color (Yellow) Urine Appearance (Clear) Urine pH (5.0-9.0) Ur Specific Dinosaur (1.001-1.035) Urine Protein (Negative) mg/dL Urine Glucose (UA) (Negative) mg/dL Urine Ketones (Negative) mg/dL Ur Blood (Man) (Negative) Urine Nitrate (Negative) Urine Bilirubin (Negative) Urine Urobilinogen (<2.0) mg/dL Leukocyte Esterase Rfl (Negative) REINA/UL POC Urine HCG, Qual Negative (Negative) Urine Opiates Screen (Negative) Urine Methadone Screen (Negative) Ur Barbiturates Screen (Negative) Ur Phencyclidine Scrn (Negative) Ur Amphetamine Screen (Negative) U Benzodiazepines Scrn (Negative) Urine Cocaine Screen (Negative) U Cannabinoids Screen (Negative) Imaging Data Attestation: I personally reviewed and interpreted this imaging study as follows: Radiologist's impression: Impressions Chest X-Ray 06/04/25 14:58 Impression: No acute cardiopulmonary abnormality. Head CT 06/04/25 14:58 Impression: 1.No acute intracranial abnormality. Discharge Plan Discharge Clinical Impression: Seizure, Elevated WBC count, Cough with hemoptysis Patient Disposition: Home Condition: Stable Instructions: Antibiotic Form, Nonepileptic Seizures (ED), Coughing Up Blood (Hemoptysis) (ED) Additional Instructions: Please return to the ER with any worsening symptoms (including coughing up large blood clots, seizures that last more than 5 minutes, shortness of breath). Follow-up with primary care provider as soon as possible for further evaluation. Take all medications as prescribed, including regularly scheduled medications. Patient Language: Congolese Prescriptions: No Action estradiol 2 mg tablet alprazolam 1 mg tablet 1 mg PO DAILY omeprazole 40 mg capsule,delayed release(DR/EC) 40 mg PO DAILY famotidine 10 mg tablet 10 mg PO DAILY Follow-up/Referrals: Gregory,Zenobia Brooks, MOTORBOAT MECHANIC HELPER [Primary Care Provider, Unknown] Stand Alone Forms: Work/School Release IP Time of Disposition: 15:48
[2025-06-04 14:27] LABS: INR 1.1; Prothrombin Time 13.8 Seconds (11.1-14.7)
[2025-06-04 14:28] LABS: Partial Thromboplastin Time 24.7 Seconds (22.3-36.8)
[2025-06-04 15:03] LABS: BEDSIDEPREGUCG Negative (Negative)
[2025-06-04 15:04] LABS: Add Urine Microscopic? NO; Appearance Urine Clear (Clear); Glucose Urine UA Negative (Negative); Leukocyte Esterase Ur Negative LEU/UL (Negative); Nitrate Urine Negative (Negative); Specific Grav Ur 1.011 (1.001-1.035)
[2025-06-04 15:07] VITALS: BP 117/72; PULSE 64; RESP 20; O2SAT 96
[2025-06-04 15:09] LABS: BEDSIDEPREGUCG Negative (Negative)
[2025-06-04 15:28] LABS: Cannabinoid Screen Urine Positive (Negative)
[2025-06-04] MEDS: SODIUM CHLORIDE 0.9% IV 1,000 ML 999 ML IV CONT (15:36)
[2025-06-04 16:36] VITALS: BP 110/60; PULSE 68; RESP 16; O2SAT 100
== END 2025-06-04 16:37 | disposition home or self-care (01) ==
PROVIDERS: Emergency Medicine; Emergency Provider Registered Nurse
DX: R56.9 Unspecified convulsions (principal); R04.2 Hemoptysis; D72.829 Elevated white blood cell count, unspecified; F41.9 Anxiety disorder, unspecified; F32.A Depression, unspecified
CPT/HCPCS: 36415; 70450; 71046; 80053; 80307; 81003; 81025; 83605; 85025; 85610; 85730; 93005; 96360; 99284; J7030